=== PATIENT | male | born 1965 | race Caucasian/White ===

== ENCOUNTER 2016-11-11 12:11 | Emergency (ER) | payer OTHER ==
[~2016-11-11] VITALS: Ht 182.9 cm; Wt 132.0 kg
--- OUTSIDE RECORDS SUMMARY | 2016-11-11 12:21 | XMS REPORT | Summary of Care ---
Author Author Patricia Cid M.D. Organization Unknown Address [address], [place] [id number] Phone Unavailable Care Team Providers Care Sample Maker Hand Name Role Phone Jose Roberto Marr, R Unavailable Unavailable Patricia Cid PP Unavailable Unavailable Unavailable Functional Status Functional Status Health Issues Name Dates Details Functional status health issues are not documented Status: Cognitive Status Health Issues Name Dates Details Cognitive status health issues are not documented Status: Problems Name Dates Details Blood in urine (599.70, R31.9) Status: Active Nephrolithiasis (592.0, N20.0) Status: Active Bunion (727.1, M20.10) Status: Active Limb pain (729.5, M79.609) Status: Active Knee pain, left (719.46, M25.562) Status: Active Knee pain (719.46, M25.569) Status: Active Effusion of knee (719.06, M25.469) Status: Active Right foot pain (729.5, M79.671) Status: Active Colon cancer screening (V76.51, Z12.11) Status: Active Colon polyp (211.3, K63.5) Status: Active Hypertension (401.9, I10) Status: Active Hypercholesterolemia (272.0, E78.0) Status: Active Medications Name Dates Details Lovastatin 20 MG Oral Tablet TAKE ONE TABLET BY MOUTH EVERY DAY DIRECTED Quantity: 90 Refills: 3 Patricia Cid M.D. Started 27-Sep-2008 ActiveLisinopril-Hydrochlorothiazide 20-12.5 MG Oral Tablet take one tablet by mouth every day Quantity: 90 Refills: 3 Patricia Cid M.D. Started 27-Sep-2008 ActiveMulti-Vitamin Oral Tablet TAKE 1 TABLET DAILY. Refills: 0 Patricia Cid M.D. Started 10-Oct-2009 ActiveAspirin Low Dose 81 MG Oral Tablet TAKE 1 TABLET DAILY. Refills: 0 Patricia Cid M.D. Started 10-Oct-2009 Active Allergies and Adverse Reactions Name Dates Details Morphine Derivatives Status: Active Procedures Procedure Dates Details History of Knee Arthroscopy With Medial Meniscectomy Colonoscopy- Screening or Dx Ordered:13-Jan-2016 Immunization Name Dates Details Diphtheria-Tetanus Toxoids 2-5 LFU Intramuscular Injectable Administered on: Tdap (Adacel) Administered on:23-Nov-2013 Family History Unknown Family Member Name Dates Details Family history of Colon Cancer (V16.0) Comments: Family History Status: Active Social History Smoking StatusUnknown if ever smoked Vital Signs Date Test Result Details 13-Jan-2016 15:13 BP Systolic 138 mm[Hg] Status: BP Diastolic 74 mm[Hg] Status: Weight 289 lb Status: Body Mass Index Calculated 40.31 kg/m2 Status: Body Surface Area Calculated 2.47 m2 Status: Results Date Description Value Details 30-Jan-2016 13:39 Colonoscopy Abnormal- Polyps (Better) Range: 0 Plan of Care Planned Observations Name Dates Details Planned Goals not documented Goal Planned Encounters Appointment; Provider: Scot Caro On 28-Jan-2015 07:00 Instructions Instructions not documented Encounters Appointment; Mike Amato Encounter Diagnosis: Problem not documented On 30-Jan-2016 11:00 Appointment; Eddie Adams Encounter Diagnosis: Problem not documented On 30-Jan-2016 10:30 Appointment; Patricia Cid Encounter Diagnosis: Problem not documented On 13-Jan-2016 14:00 Appointment; Scot Caro Encounter Diagnosis: Problem not documented On 17-Feb-2015 10:45 Appointment; Patricia Davidson Encounter Diagnosis: Problem not documented On 12-Feb-2015 11:30 Appointment; Scot Caro Encounter Diagnosis: Problem not documented On 03-Feb-2015 11:15 Appointment; Scot Caro Encounter Diagnosis: Problem not documented On 06-Jan-2015 13:00 Appointment; Scot Caro Encounter Diagnosis: Problem not documented On 01-Jan-2015 10:00 Appointment; Patricia Cid Encounter Diagnosis: Problem not documented On 13-Dec-2014 10:15 Appointment; Angel No Encounter Diagnosis: Problem not documented On 29-Jul-2014 14:30
[2016-11-11] MEDS ORDERED: HYDROmorphone 1 MG/ML (DILAUDID) SYRINGE IV ONE (12:30)
[2016-11-11] MEDS ORDERED: SODIUM CHLORIDE FLUSH 3 ML SYR IV PRN (12:30)
[2016-11-11] MEDS ORDERED: ONDANSETRON 2 MG/ML (Z0FRAN) 2 ML VIAL IV ONE (12:30)
[2016-11-11] MEDS ORDERED: SODIUM CHLORIDE FLUSH 10 ML SYR IV PRN (12:30)
[2016-11-11] MEDS ORDERED: KETOROLAC 30 MG/ML (TORADOL) 1 ML VIAL IV ONE (12:30)
[2016-11-11 12:50] LABS: BASOPHILS % (AUTO) 1 % (0-2); EOSINOPHILS # (AUTO) 0.1 10^3uL; EOSINOPHILS % (AUTO) 2 % (0-4); LYMPHOCYTES # (AUTO) 1.2 X10^3; MEAN CORPUSCULAR HGB CONC 34.2 g/dL (31.0-37.0); MEAN CORPUSCULAR VOLUME 94 FL (80-100); MEAN PLATELET VOLUME 8.7 FL (6.0-9.5); MONOCYTES # (AUTO) 0.6 X10^3; MONOCYTES % (AUTO) 9 % (3-11); NEUTROPHILS # (AUTO) 4.6 X10^3; NEUTROPHILS % (AUTO) 71 % (51-67); PLATELET COUNT 232 10^3uL (150-450); WHITE BLOOD COUNT 6.55 10^3uL (4.0-11.0)
[2016-11-11 12:51] LABS: MEAN CORPUSCULAR HEMOGLOBIN 32.3 PG (26.0-34.0)
[2016-11-11 13:02] LABS: ALBUMIN 4.6 g/dL (3.4-5.0); ANION GAP 16.6 MEQ/L (3-15); CALCULATED IONIZED CALCIUM 3.8 mg/dL (3.8-4.6); TOTAL PROTEIN 7.8 g/dL (6.4-8.5)
[2016-11-11 13:32] LABS: BILIRUBIN,URINE Negative (Negative); CLARITY,URINE Clear; COLOR,URINE Yellow; GLUCOSE, URINE (UA) Negative (Negative); LEUKOCYTE ESTERASE ,URINE Negative (Negative)
[2016-11-11 13:39] LABS: RBC,URINE 20-50 /HPF; URINE CENTRIFUGED VOLUME 12 mL
--- NOTE | 2016-11-11 14:38 | Diagnostic Imaging Report ---
INDICATION: Right flank pain. CT abdomen and pelvis obtained without IV contrast. There is no prior study for comparison. FINDINGS: Visualized portions of the lung bases are clear. There are no pleural fluid collections. There is no free intraperitoneal air. The liver shows diffuse low-density change compatible with fatty infiltration. There is no focal liver lesion. Gallbladder is unremarkable. The spleen, adrenals, and pancreas are normal in appearance. Right kidney shows moderate hydronephrosis and hydroureter, down to the level of a 3 mm stone at the right UVJ. Left kidney shows a couple of tiny intrarenal calculi but no ureteral stone or hydronephrosis. There is no retroperitoneal mass or adenopathy. There is no ascites or abnormal fluid collection. The appendix appears normal. IMPRESSION: Right hydronephrosis with hydroureter, secondary to a 3 mm stone at the right UVJ. Diffuse fatty infiltration of the liver. No other abnormal findings. Dictated by: Dictated on workstation # [id number]
[2016-11-11] MEDS ORDERED: TAMS-8 PO (15:30)
[2016-11-11] MEDS ORDERED: HYDR-3811 PO (15:31)
[2016-11-11 16:20] VITALS: BP 116/64
--- NOTE | 2016-11-11 16:21 | NUR ---
sent home with urine strainer and urinal.
== END 2016-11-11 16:08 | disposition home or self-care (01) ==
LOC: EDUNIT# 12:16 → ED 12:16
DX: N13.2 Hydronephrosis with renal and ureteral calculous obstruction (principal); N13.4 Hydroureter
CPT/HCPCS: 36415; 74176; 80053; 81003; 81015; 83690; 85025; J1170; J1885; J2405; J7030; 96361; 96374; 96375; 99283